=== PATIENT | female | born 1985 | race Caucasian/White ===

== ENCOUNTER 2016-10-09 15:52 | Emergency (ER) | payer OTHER ==
[~2016-10-09] VITALS: Ht 157.5 cm; Wt 96.5 kg
[2016-10-09 16:49] LABS: ASPARTATE AMINO TRANSFERASE 13 U/L (15-37); BLOOD UREA NITROGEN 12 mg/dL (7-18)
[2016-10-09] MEDS ORDERED: KETOROLAC 30 MG/1 ML ONE (16:49)
[2016-10-09] MEDS ORDERED: HYDROcodone/APAP 5/325 TABLET ONE (16:49)
[2016-10-09 16:55] LABS: IS PT STATUS REG ER OR PRE ER? YES
[2016-10-09] MEDS ORDERED: HYDROcodone/APAP 5/325 TABLET PO ONE (17:00)
[2016-10-09] MEDS ORDERED: KETOROLAC 30 MG/1 ML IM ONE (17:00)
[2016-10-09 18:53] VITALS: BP 137/69
== END 2016-10-09 20:21 | disposition home or self-care (01) ==
LOC: ED 20:00
DX: R07.89 Other chest pain (principal); I10 Essential (primary) hypertension
CPT/HCPCS: 36415; 71010; 80053; 83690; 84484; 85025; 93005; 96372; 99285; J1885

== ENCOUNTER 2017-04-02 17:55 | Emergency (ER) | payer OTHER ==
[~2017-04-02] VITALS: Ht 157.5 cm; Wt 97.1 kg
[2017-04-02 17:56] VITALS: BP 162/100
[2017-04-02] MEDS ORDERED: LOSA100T6 PO (19:09)
== END 2017-04-02 19:44 | disposition home or self-care (01) ==
LOC: ED 19:43
DX: S33.5XXA Sprain of ligaments of lumbar spine, initial encounter (principal); S20.211A Contusion of right front wall of thorax, initial encounter; I10 Essential (primary) hypertension; V43.52XA Car driver injured in collision with other type car in traffic accident, initial encounter; Y93.89 Activity, other specified; Y92.413 State road as the place of occurrence of the external cause; Y99.8 Other external cause status
CPT/HCPCS: 71046; 99284